=== PATIENT | female | born 1965 | race Caucasian/White ===

== ENCOUNTER 2018-10-15 20:13 | Emergency (ER) | payer BC, MEDICAID ==
[~2018-10-15] VITALS: Ht 175.3 cm; Wt 59.0 kg
[~2018-10-15 20:13] MED LIST: NORCO 5-325 TA1 EACH PO
[2018-10-15] MEDS ORDERED: NKM (20:23)
[2018-10-15 20:26] VITALS: BP 105/62
--- NOTE | 2018-10-15 20:26 | NUR ---
ED Nurse Note: Pt arrived ED from home, c/o back pain for 2 weeks without any injury was noted . Pt is A/O X 4. Vital signs stable at this time, waiting for orders.
[2018-10-15] MEDS ORDERED: ROBAXIN-750750 MG PO (21:13)
[2018-10-15] MEDS ORDERED: NORCO 5-325 TA1 EACH ORAL (21:13)
[2018-10-15 21:39] VITALS: BP 107/63
--- NOTE | 2018-10-15 21:39 | NUR ---
ER DISCHARGE NOTE: Patient is cleared to be discharged per Dr. Molina. X-ray done. Pain meds given as ordered. Pt is aox4 on room air with stable vital signs. Pt was given dc and prescription instructions and was able to verbalize understanding. Pt ID band and removed. Pt is able to ambulate with steady gait and took all belongings.
[2018-10-15 22:30] LABS: APPEARANCE,URINE CLEAR; BILIRUBIN, URINE NEGATIVE (NEGATIVE); COLOR,URINE PALE YELLOW; GLUCOSE, URINE (UA) NEGATIVE (NEGATIVE); KETONES,URINE NEGATIVE (NEGATIVE); LEUKOCYTE ESTERASE ,URINE 1+ (NEGATIVE); NITRITE,URINE NEGATIVE (NEGATIVE); PH,URINE 6 (4.5-8.0); PROTEIN,URINE NEGATIVE (NEGATIVE); UROBILINOGEN,URINE NORMAL MG/DL (0.0-1.0)
--- NOTE | 2018-10-15 23:08 | Emergency Room Report ---
History of Present Illness General Chief Complaint: Lower Back Pain or Injury Source: Patient Present Illness HPI Patient is a 53-year-old female who presents after increased low back pain. Patient reports having prior history of episodic back pain in the past. She reports increased pain to the left buttock. patient denies any radiation below the knee. She does not recall any recent trauma. She denies any recent fever. She had not been noticing any significant weight loss. She denies IV drug use. Allergies: Coded Allergies: ASPIRIN (Verified Allergy, Severe, Anaphylaxis, 09/19/12) Patient History Past Medical History: see triage record Last Menstrual Period: 1 YEAR Now: No Reviewed Nursing Documentation: PMH: Agreed; PSxH: Agreed Nursing Documentation-PMH Past Medical History: No Stated History Hx Neurological Problems: Yes - MIGRAINE Review of Systems All Other Systems: negative except mentioned in HPI Physical Exam Vital Signs Date Time Temp Pulse Resp B/P (MAP) Pulse Ox O2 Delivery O2 Flow Rate FiO2 10/15/18 20:19 97.9 96 14 103/61 (75) 98 Room Air General Appearance: well appearing, no apparent distress, alert, GCS 15 Head: normocephalic, atraumatic ENT: hearing grossly normal, normal voice Neck: full range of motion, supple Respiratory: no respiratory distress, speaking full sentences Gastrointestinal: normal inspection Musculoskeletal: decreased range of mation Neurologic: normal inspection, alert, oriented x3, responsive, certified respiratory therapist III-XII nml as tested - Right knee during the release, motor strength/tone normal, normal gait Psychiatric: mood/affect normal Skin: no rash Medical Decision Making Diagnostic Impression: Primary Impression: Low back pain ER Course Patient presented for back pain. Differential diagnosis included but was not limited to herniated disc, cauda equina syndrome, abdominal aortic aneurysm, perforated ulcer, spinal epidural abscess, spinal stenosis, lumbar fracture, metastatic lesion, pyelonephritis. Patient has a benign exam and does not appear to require any further imaging or laboratory testing at this time. Patient is noted to have some pain to her low back worse with movement. This appears to be musculoskeletal in nature. Patient does not have any fever or spinous tenderness suggestive of epidural abscess. She is able to ambulate without assistance. She appears to have normal strength. Patient was offered CT imaging which she declined. Patient was discharged home. She was noted to have urinalysis without any evidence of definite infection. Patient will be given a short course of pain medications. She is advised to continue anti- inflammatory medications at home. She is advised to return if she has any worsening of condition or other concerns Labs Test 10/15/18 21:50 Urine Color Pale yellow Urine Appearance Clear Urine pH 6 (4.5-8.0) Urine Specific [place] 1.015 (1.005-1.035) Urine Protein Negative (NEGATIVE) Urine Glucose (UA) Negative (NEGATIVE) Urine Ketones Negative (NEGATIVE) Urine Blood 4+ (NEGATIVE) Urine Nitrite Negative (NEGATIVE) Urine Bilirubin Negative (NEGATIVE) Urine Urobilinogen Normal MG/DL (0.0-1.0) Urine Leukocyte Esterase 1+ (NEGATIVE) Urine RBC 5-10 /HPF (0 - 2) Urine WBC 0-2 /HPF (0 - 2) Urine Squamous Epithelial Cells Occasional /LPF Urine Bacteria Occasional /HPF (NONE) Last Vital Signs Date Time Temp Pulse Resp B/P (MAP) Pulse Ox O2 Delivery O2 Flow Rate FiO2 10/15/18 21:39 97.9 85 14 107/63 98 Room Air Status: improved Disposition: HOME, SELF-CARE Condition: Stable Scripts Methocarbamol* (ROBAXIN-750*) 750 Mg Tablet 750 MG PO TID, #21 TAB 0 Refills Prov: Glynn Molina MD 10/15/18 Hydrocodone Bit/Acetaminophen 5-325* (NORCO 5-325*) 1 Each Tablet 1 TAB ORAL Q6H PRN for For Pain, #10 TAB 0 Refills Prov: Glynn Molina MD 10/15/18 Patient Instructions: Low Back Sprain With Rehab-SportsMed Additional Instructions: Follow up with orthopedics for reevaluation of your back pain. Return for fever worsening pain or difficulty urinating or other concerns. Glynn Molina MD Oct 15, 2018 23:08
== END 2018-10-15 21:39 | disposition home or self-care (01) ==
LOC: EMR 20:39
DX: M54.5 Low back pain (principal)
CPT/HCPCS: 81003; 99283